=== PATIENT | female | born 1960 | race Caucasian/White ===

== ENCOUNTER 2018-04-02 15:44 | Inpatient (IN) | payer OTHER ==
[~2018-04-02] VITALS: Ht 162.6 cm; Wt 93.0 kg
[2018-04-03] MEDS ORDERED: AVAPRO300 MG PO (12:15)
[2018-04-03] MEDS ORDERED: TOPROL XL50 M1 PO (12:15)
[2018-04-03] MEDS ORDERED: PAIN RELIEVER500 MG PO (12:20)
[2018-04-03] MEDS ORDERED: CYMBALTA60 MG PO (12:20)
[2018-04-03] MEDS ORDERED: ESTRADIOL1 MG PO (12:21)
[2018-04-03] MEDS ORDERED: GABAPENTIN800 MG PO (12:21)
[2018-04-11] MEDS ORDERED: GABAPENTIN800 MG PO (10:01)
[2018-04-11] MEDS ORDERED: DOCUSATE SODIU100 MG PO (10:02)
[2018-04-11] MEDS ORDERED: AMOX-CLAV 875-1 EACH PO (10:02)
[2018-04-11] MEDS ORDERED: PERCOCET 5-3251 EACH PO (10:03)
[2018-04-11] MEDS ORDERED: CLONAZEPAM1 MG PO (10:03)
== END 2018-04-11 13:26 | disposition home or self-care (01) | DRG 460 ==
LOC: SURH 04-10 06:35 → O/R 04-10 06:35 → SURH 04-10 14:48 → O/R 04-10 15:43 → SURH 04-11 13:26
PROVIDERS: Orthopaedic Surgery Orthopaedic Surgery of the Spine
PROC: 0ST20ZZ Resection of Lumbar Vertebral Disc, Open Approach (ICD-10-PCS; 2018-04-10)
PROC: 0ST40ZZ Resection of Lumbosacral Disc, Open Approach (ICD-10-PCS; 2018-04-10)
PROC: 07DS3ZZ Extraction of Vertebral Bone Marrow, Percutaneous Approach (ICD-10-PCS; 2018-04-10)
PROC: 00NY0ZZ Release Lumbar Spinal Cord, Open Approach (ICD-10-PCS; principal; 2018-04-10 16:00)
PROC: 0SG30AJ Fusion of Lumbosacral Joint with Interbody Fusion Device, Posterior Approach, Anterior Column, Open Approach (ICD-10-PCS; 2018-04-10 16:00)
DX: M47.27 Other spondylosis with radiculopathy, lumbosacral region (principal); M48.061 Spinal stenosis, lumbar region without neurogenic claudication; M51.17 Intervertebral disc disorders with radiculopathy, lumbosacral region; I10 Essential (primary) hypertension

== ENCOUNTER 2021-08-22 10:00 | Outpatient (CLI) | payer OTHER ==
[~2021-08-22 10:00] MED LIST: AMOX-CLAV 875-1 EACH PO; AVAPRO300 MG PO; CLONAZEPAM1 MG PO; CYMBALTA60 MG PO; DOCUSATE SODIU100 MG PO; ESTRADIOL1 MG PO; GABAPENTIN800 MG PO; PAIN RELIEVER500 MG PO; PERCOCET 5-3251 EACH PO; TOPROL XL50 M1 PO
== END 2021-08-22 10:15 | disposition home or self-care (01) ==
LOC: PPH VACUNA 10:00
PROVIDERS: ATTEND Emergency Medicine Pediatric Emergency Medicine
DX: Z23 Encounter for immunization (principal)

== ENCOUNTER 2024-07-31 13:42 | Inpatient (IN) | payer OTHER ==
[~2024-07-31] VITALS: Ht 162.6 cm; Wt 104.3 kg
[2024-07-31] MEDS ORDERED: COZAAR100 MG PO (15:37)
[2024-07-31] MEDS ORDERED: HYDRODIURIL12.5 MG PO (15:38)
[2024-08-01 08:29] VITALS: BP 112/69
[2024-08-05] MEDS ORDERED: ENALAPRILAT DIHYDRATE 1.25 MG/ML VIAL IV PRN (07:30)
[2024-08-05] MEDS ORDERED: 0.9 % SODIUM CHLORIDE 1,000 ML IV SCH (07:30)
[2024-08-05] MEDS ORDERED: PROMETHAZINE HCL 50 MG/ML AMPUL IM PRN (07:30)
[2024-08-05] MEDS ORDERED: MEDROLPACK PO (07:36)
[2024-08-05] MEDS ORDERED: AMOX-CLAV 875-1 EACH PO (07:36)
[2024-08-05] MEDS ORDERED: PERCOCET 5-3251 EACH PO (07:36)
[2024-08-05] MEDS ORDERED: ZOFRAN8 MG PO (07:37)
[2024-08-05] MEDS ORDERED: COLACE100 MG PO (07:37)
[2024-08-05] MEDS ORDERED: NEURONTIN800 MG PO (07:37)
[2024-08-05] MEDS ORDERED: METHYLPREDNISOLONE ACETATE 80 MG/ML VIAL IJ ONE ×2 (08:30)
[2024-08-05] MEDS ORDERED: LIDOCAINE HCL 1%/EPINEPHRINE 20ML VIAL IJ ONE (08:30)
[2024-08-05] MEDS ORDERED: HEMOSTATIC MATRIX WITH THROMBIN KIT TOP ONE (08:30)
[2024-08-05] MEDS ORDERED: VANCOMYCIN HCL 1,000 MG VIAL IR ONE ×2 (08:30)
[2024-08-05] MEDS ORDERED: CEFAZOLIN SODIUM 1,000 MG VIAL IV ONE (08:30)
[2024-08-05] MEDS ORDERED: TRANEXAMIC ACID 100MG/1ML (1000MG) AMPUL IV ONE ×2 (08:30)
[2024-08-05] MEDS ORDERED: VANCOMYCIN HCL 1,000 MG VIAL IV ONE (08:30)
[2024-08-05] MEDS ORDERED: METHYLPREDNISOLONE SOD SUCC 125 MG VIAL IJ ONE ×2 (08:30)
[2024-08-05] MEDS ORDERED: METHYLPREDNISOLONE SOD SUCC 125 MG VIAL IV SCH (09:00)
[2024-08-05] MEDS ORDERED: CEFAZOLIN SODIUM 1,000 MG in 0.9 % SODIUM CHLORIDE 50 ML IV SCH (09:00)
[2024-08-05] MEDS ORDERED: VANCOMYCIN HCL 1,000 MG in 0.9 % SODIUM CHLORIDE 250 ML IV SCH (09:00)
[2024-08-05] MEDS ORDERED: DOCUSATE SODIUM 100MG CAP PO SCH (09:00)
[2024-08-05] MEDS ORDERED: MORPHINE SULFATE 4 MG,MORPHINE SULFATE 2 MG IV SCH (09:00)
[2024-08-05] MEDS ORDERED: FAMOtidine 20 MG TABLET PO SCH (09:00)
[2024-08-05] MEDS ORDERED: MORPHINE SULFATE 4 MG/ML VIAL IV ONE ×2 (10:25→10:55)
[2024-08-05] MEDS ORDERED: MORPHINE SULFATE 5 MG/ML VIAL IV ONE (12:00)
[2024-08-05 13:26] VITALS: BP 147/79; O2SAT 95
[2024-08-05 15:30] VITALS: BP 120/72; O2SAT 96
[2024-08-05] MEDS ORDERED: DEXTROSE 50 % IN WATER 0.5 G/ML DISP.SYRIN IV PRN (16:00)
[2024-08-05] MEDS ORDERED: INSULIN LISPRO 1,000 UNIT/10 ML UNITS SUBCUTANEO PRN (16:00)
[2024-08-05] MEDS ORDERED: SIMVASTATIN 20 MG TABLET PO SCH (17:00)
[2024-08-05] MEDS ORDERED: METOPROLOL SUCCINATE 50 MG TAB.SR.24H PO SCH (17:00)
[2024-08-05] MEDS ORDERED: MetFORMIN HCL 1000 MG TABLET PO SCH (17:00)
[2024-08-05 20:00] VITALS: BP 116/82; O2SAT 97
[2024-08-05] MEDS ORDERED: GABAPENTIN 800 MG TABLET PO SCH (21:00)
[2024-08-06] VITALS (7 sets, daily range): BP systolic 84–124; BP diastolic 54–71; O2SAT 94–98
[2024-08-06] MEDS ORDERED: SODIUM CHLORIDE 0.45 % 1,000 ML IV SCH
[2024-08-06 05:20] LABS: HEMATOCRIT 32.4 % (36.0-45.00); MEAN CELL VOLUME 87.7 fL (80.00-100.00); MEAN CORPUSCULAR HEMOGLOBIN 29.8 pg (27.00-32.0); PLATELET COUNT 255 K/uL (150-450); RED CELL DISTRIBUTION WIDTH 14.4 % (11.5-14.5)
[2024-08-06 05:37] LABS: CALCIUM 8.1 mg/dL (8.5-10.1); CREATININE SERUM 0.98 mg/dL (0.55-1.02); GFR 57.5; POTASSIUM 4.63 mEq/L (3.5-5.1)
[2024-08-06] MEDS ORDERED: OxyCODONE HCL/APAP UD (PERCOCET) PO PRN (06:01)
[2024-08-06] MEDS ORDERED: TAMSULOSIN HCL 0.4 MG CAP PO SCH (09:00)
[2024-08-06] MEDS ORDERED: HYDROCHLOROTHIAZIDE 12.5 MG CAPSULE PO SCH (09:00)
[2024-08-06] MEDS ORDERED: LOSARTAN POTASSIUM 100 MG TABLET PO SCH (09:00)
[2024-08-06] MEDS ORDERED: Duloxetine HCl 60 MG CAPSULE.DR PO SCH (09:00)
[2024-08-07] VITALS: BP 92/56; O2SAT 95
[2024-08-07 04:00] VITALS: BP 129/71; O2SAT 97
[2024-08-07 08:38] VITALS: BP 144/65; O2SAT 97
[2024-08-07 12:34] VITALS: BP 145/70; O2SAT 98
== END 2024-08-07 14:13 | DRG 455 ==
LOC: O/R 08-05 05:20 → SURG 08-05 07:00 → PED 08-05 11:33 → SURG 08-05 11:50 → PED 08-07 14:13
PROVIDERS: ADMIT Orthopaedic Surgery Orthopaedic Surgery of the Spine; ATTEND Orthopaedic Surgery Orthopaedic Surgery of the Spine
PROC: 0SG0071 Fusion of Lumbar Vertebral Joint with Autologous Tissue Substitute, Posterior Approach, Posterior Column, Open Approach (ICD-10-PCS; 2024-08-05)
PROC: 0ST20ZZ Resection of Lumbar Vertebral Disc, Open Approach (ICD-10-PCS; 2024-08-05)
PROC: 0QB20ZZ Excision of Right Pelvic Bone, Open Approach (ICD-10-PCS; 2024-08-05)
PROC: 07DR0ZZ Extraction of Iliac Bone Marrow, Open Approach (ICD-10-PCS; 2024-08-05)
PROC: 4A1104G Monitoring of Peripheral Nervous Electrical Activity, Intraoperative, Open Approach (ICD-10-PCS; 2024-08-05)
PROC: XRGB0R7 Fusion of Lumbar Vertebral Joint using Custom-Made Anatomically Designed Interbody Fusion Device, Open Approach, New Technology Group 7 (ICD-10-PCS; principal; 2024-08-05 07:00)
DX: M43.16 Spondylolisthesis, lumbar region (principal); M48.062 Spinal stenosis, lumbar region with neurogenic claudication; I10 Essential (primary) hypertension; E11.9 Type 2 diabetes mellitus without complications; Z79.4 Long term (current) use of insulin; G47.30 Sleep apnea, unspecified